=== PATIENT | female | born 1945 | race Caucasian/White ===

== ENCOUNTER 2016-08-06 15:55 | Emergency (ER) | payer MEDICARE, OTHER ==
[~2016-08-06 15:55] MED LIST: ACETAMINOPHEN PO; AFRICAN MANGO; ALLEGRA180 PO; ALPHA LIPOIC PO; AMARYL2 PO; AMARYL4 PO; ASA5GR PO; ASAB PO; ASABAYER PO; ASPERCREME TOP; BUM1 PO; BUM2 PO; CAFFEINE PO; CELEBREX2 PO; CELEXA40 MG PO; CORDARONE PO; COREG3 PO; COREG6 PO; COUMADIN4 MG PO; DITRO5 PO; DONNATA1 OR; DONNATA1 PO; DONNATAL TAB1 TAB PO; ESTRACE1 MG PO; ESTRADIOL2 MG OR; ESTRADIOL2 MG PO; EXCEDRIN MIGRA1 EAC1 PO; FISH OIL OTC PO; FISH-EPA1000 MG PO; GREEN COFFEE BEAN; GREEN COFFEE BEAN PO; KLOR-CON M1010 MEQ PO; KLOR-CON M2020 MEQ PO; LANTUS SC; LEXAPRO10 PO; LIPITOR40 PO; LISINOPRIL40 MG PO; LOP50 PO; MAGOX4 PO; MAX25 PO; MELATONIN1 M1 PO; MOTRIN IB200 MG PO; MULTIVIT/MIN PO; NITROSTAT0.4 MG SL; PCET PO; PLAVIX PO; PRAVAC PO; PRAVACHOL80 MG PO; PRIN20 PO; PRIN5 PO; PROVHFA INH; SENOKOTS PO; SPIRO25 PO; VITAMIN B PO; VITAMIN D31000 UNIT PO; Z5 PO; ZYRTEC ALLGY10 MG PO; [UNRECOGNIZED DRUG - OTHER] PO
== END 2016-08-06 16:59 | disposition home or self-care (01) ==
LOC: ER 15:55
DX: M25.571 Pain in right ankle and joints of right foot (principal); Z95.1 Presence of aortocoronary bypass graft; Z88.1 Allergy status to other antibiotic agents; Z91.09 Other allergy status, other than to drugs and biological substances; Z79.899 Other long term (current) drug therapy
CPT/HCPCS: 73610-RT; 99283; A9270-GY